=== PATIENT | male | born 1955 | race Caucasian/White ===

== ENCOUNTER 2018-10-03 19:28 | Emergency (ER) | payer MEDICARE, OTHER ==
[~2018-10-03] VITALS: Ht 190.5 cm; Wt 98.9 kg
== END 2018-10-03 22:30 | disposition home or self-care (01) ==
LOC: ER 19:28
DX: T83.098A Other mechanical complication of other urinary catheter, initial encounter (principal); F17.210 Nicotine dependence, cigarettes, uncomplicated
CPT/HCPCS: 51798; 99283-25

== ENCOUNTER 2022-09-29 16:00 | Emergency (ER) | payer MEDICARE, OTHER ==
[~2022-09-29] VITALS: Ht 195.6 cm; Wt 109.9 kg
[2022-09-29 16:23] LABS: BASOPHILS ABSOLUTE AUTO 0.04 K/mm3 (0.00-0.23); BASOPHILS PERCENT AUTO 0 % (0-2); EOSINOPHILS ABSOLUTE AUTO 0.04 K/mm3 (0.00-0.68); EOSINOPHILS PERCENT AUTO 0 % (0-6); Hematocrit 40.3 % (37.0-53.0); Hemoglobin 13.8 g/dL (13.5-17.5); IMMATURE GRAN ABSOLUTE AUTO 0.03 K/mm3 (0.00-0.10); IMMATURE GRAN PERCENT AUTO 0 % (0-1); LYMPHOCYTES PERCENT AUTO 21 % (21-46); MONOCYTES PERCENT AUTO 8 % (4-13); Mean Corpuscular HGB 30.3 pg (26.0-34.0); Mean Corpuscular HGB Conc 34.2 g/dL (31.5-36.5); Mean Corpuscular Volume 89 fL (80-100); NEUTROPHILS ABSOLUTE AUTO 7.58 K/mm3 (1.96-9.15); NEUTROPHILS PERCENT AUTO 71 % (41-73); Platelet Count 286 K/mm3 (150-400); RDW Coefficient Variation 13.2 % (11.7-14.2); RDW Standard Deviation 43.1 fL (35.1-46.3); Red Blood Cell Count 4.55 M/mm3 (4.30-5.90); White Blood Cell Count 10.69 K/mm3 (4.00-11.30)
[2022-09-29] MEDS ORDERED: Simvastatin40 MG PO (16:35)
[2022-09-29] MEDS ORDERED: PROZAC40 MG PO (16:35)
[2022-09-29 16:36] LABS: International Normalized Ratio 1.01; Prothrombin Time Results 10.6 Sec (9.7-11.5)
[2022-09-29] MEDS ORDERED: ABILIFY5 MG PO (16:36)
[2022-09-29] MEDS ORDERED: Buspirone HCl15 MG PO (16:36)
[2022-09-29] MEDS ORDERED: Oxybutynin Chlo15 MG PO (16:37)
[2022-09-29 16:40] LABS: Albumin, Blood 3.8 g/dL (3.4-5.0); Albumin/Globulin Ratio 1.2 (0.8-1.8); Bilirubin, Total 0.3 mg/dL (0.1-1.0); Bun/Creatinine Ratio 15.5 (12.0-20.0); Calcium, Blood 9.2 mg/dL (8.5-10.1); Creatinine, Blood 1.29 mg/dL (0.60-1.20); Globulin, Blood 3.1 g/dL (2.2-4.0); Total Protein, Blood 6.9 g/dL (6.4-8.2)
[2022-09-29 19:00] VITALS: BP 166/104
== END 2022-09-29 19:26 | disposition short-term general hospital (02) ==
LOC: ER 16:00
PROVIDERS: Emergency Medicine
DX: Z53.21 Procedure and treatment not carried out due to patient leaving prior to being seen by health care provider (principal); Z23 Encounter for immunization
CPT/HCPCS: 27818; 73600; 73620; 80053; 85025; 85610; 90471; 90715; 96365-59; 96375-59; 96376-59; 99152; 99285-25; J0690; J1170; J1580; J2405; J7030

== ENCOUNTER 2023-07-11 08:39 | Day surgery (SDC) | payer MEDICARE, OTHER ==
[2023-07-11] VITALS (16 sets, daily range): BP systolic 99–149; BP diastolic 60–118
[~2023-07-11] VITALS: Ht 187 cm; Wt 114.0 kg
[~2023-07-11 08:39] MED LIST: ABILIFY5 MG PO; Buspirone HCl15 MG PO; Lactated Ringer's 1,000 ML IV SCH; OXYB5 PO; Oxybutynin Chlo15 MG PO; PROZAC40 MG PO; Prinivil10 MG PO; SPIRIVA RESPIMAT4 G3 INH; Simvastatin40 MG PO; ZOCOR20 MG PO
--- NOTE | 2023-07-11 10:07 | NUR ---
History, Chart, Medications and Allergies reviewed before start of procedure. Patient up to Ambulate independently. Gait steady. Pre-Op teaching done. Pt verbalizes understanding. Patient confirms NPO status and agrees with scheduled surgery. Patient states colon prep results clear. Patient States Post-Procedure ride home has been arranged.
[2023-07-11] MEDS ORDERED: propofoL 40 ML IV ONE (10:35)
--- NOTE | 2023-07-11 10:45 | NUR ---
07/11/23 1045 Hever Munoz HISTORY, CHART, MEDICATIONS AND ALLERGIES REVIEWED BEFORE START OF PROCEDURE. PATIENT CONFIRMS NPO STATUS AND AGREES WITH SCHEDULED PROCEDURE. 3-LEAD EKG REVIEWED WITH PHYSICIAN PRIOR TO START OF PROCEDURE. MONITOR INTACT WITH CONTINUOUS PULSE OXIMETRY,CAPNOGRAPHY, 3-LEAD EKG, INTERMITTENT BP. SUPPLEMENTAL O2 TO BE TITRATED THROUGHOUT PROCEDURE TO MAINTAIN O2 SATURATION ABOVE 90%. PATIENT DETERMINED TO BE ASA APPROPRIATE FOR PROPOFOL SEDATION PRIOR TO START OF PROCEDURE BY DR. ROME
--- NOTE | 2023-07-11 11:13 | NUR ---
PT TO DAY SURGERY STEP DOWN FROM COLONOSCOPY. BEDSIDE REPORT RECEIVED. PT IS AWAKE, ALERT AND ORIENTED; ABLE TO MOVE SELF IN BED. VSS. PT HAS NO COMPLAINTS AT THIS TIME.
--- NOTE | 2023-07-11 11:23 | NUR ---
TOLERATING PO FLUIDS WELL. Discharge instructions reviewed with patient. Patient verbalizes understanding. Copy given to patient to take home. Patient States Post-Procedure ride home has been arranged.
--- NOTE | 2023-07-11 11:34 | NUR ---
Patient up to Ambulate independently. Gait steady.
--- NOTE | 2023-07-11 11:38 | NUR ---
Discharged via wheelchair to private car for ride home.
== END 2023-07-11 11:39 | disposition home or self-care (01) ==
LOC: ORSCMMR 08:39 → ORD 10:00 → ORSCMMR 11:39
PROVIDERS: Internal Medicine Gastroenterology
PROC: 0DBL8ZX Excision of Transverse Colon, Via Natural or Artificial Opening Endoscopic, Diagnostic (ICD-10-PCS; principal; 2023-07-11 10:00)
DX: Z12.11 Encounter for screening for malignant neoplasm of colon (principal); Z86.010 Personal history of colon polyps; D12.3 Benign neoplasm of transverse colon; I10 Essential (primary) hypertension; E78.00 Pure hypercholesterolemia, unspecified; Z79.899 Other long term (current) drug therapy; Z85.51 Personal history of malignant neoplasm of bladder; Z87.891 Personal history of nicotine dependence
CPT/HCPCS: 88305; J2704; J7120